=== PATIENT | female | born 1985 | race Caucasian/White ===

== ENCOUNTER → 2020-02-23 | Outpatient (CLI) | payer OTHER, BC ==
--- NOTE | 2020-02-23 14:15 | REP ---
Soft-tissue neck radiographs: Three views. History: Pain with swallowing. Dysphagia. Findings: There is a mild dextroconvex curve in the cervical spine on the AP view. On lateral film the epiglottis is normal. Retropharyngeal soft tissues are not widened. Laryngeal silhouette is unremarkable. No glottic or subglottic airway lesion or narrowing is seen. Hyoid bone is normal in appearance. There is no evidence of opaque foreign body. There is straightening of the cervical spine but no acute bony abnormality. Impression: Negative soft-tissue neck radiographs. Electronically Signed by Ozzie Harkins MD 02/23/2020 02:06 P
== END ==
LOC: M LRY 13:48
PROVIDERS: ATTEND Physician Assistant
DX: R13.10 Dysphagia, unspecified (principal)